=== PATIENT | male | born 1965 | race Caucasian/White ===

== ENCOUNTER 2023-03-09 21:05 | Emergency (ER) | payer BC, MEDICARE ==
[~2023-03-09] VITALS: Ht 180.3 cm; Wt 87.2 kg
[2023-03-09 23:07] LABS: BASOPHILS % (AUTO) 0.3 % (0-1); EOSINOPHILS % (AUTO) 0.2 % (0-6); HEMATOCRIT 33.6 % (42.0-52.0); HEMOGLOBIN 10.8 g/dl (14.0-17.9); LYMPHOCYTES % (AUTO) 11.4 % (21-51); MEAN CORPUSCULAR HEMOGLOBIN 20.5 PG (27.0-31.0); MEAN CORPUSCULAR HGB CONC 32.1 g/dL (33.0-36.5); MEAN CORPUSCULAR VOLUME 63.8 FL (78-98); MEAN PLATELET VOLUME 9.5 FL (7.4-10.4); MONOCYTES # (AUTO) 0.5 X10'3 (0-0.9); MONOCYTES % (AUTO) 5.2 % (2-12); NEUTROPHILS # (AUTO) 7.2 X10'3 (1.8-7.7); NEUTROPHILS % (AUTO) 82.9 % (42-75); PLATELET COUNT 247 X10'3 (140-440); RED BLOOD COUNT 5.26 X10'6 (4.70-6.10); RED CELL DISTRIBUTION WIDTH 16.1 % (11.5-14.5); WHITE BLOOD COUNT 8.7 X10'3 (4.5-11.0)
[2023-03-09 23:10] LABS: ALANINE AMINOTRANSFERASE 90 U/L (12-78); ALBUMIN 4.3 G/DL (3.4-5.0); ALBUMIN/GLOBULIN RATIO 1.7 (1.1-1.5); ALKALINE PHOSPHATASE 84 IU/L (46-116); ANION GAP 9 (8-16); ASPARTATE AMINO TRANSFERASE 25 U/L (10-37); BILIRUBIN,TOTAL 0.4 MG/DL (0.1-1.0); BLOOD UREA NITROGEN 17 MG/DL (7-18); CALCIUM 9.1 MG/DL (8.5-10.1); CHLORIDE 101 MMOL/L (99-107); CREATININE 1.06 MG/DL (0.60-1.10); GLUCOSE 206 MG/DL (70-104); POTASSIUM 3.8 MMOL/L (3.5-5.1); SODIUM 138 MMOL/L (135-145); TOTAL CARBON DIOXIDE 28.1 MMOL/L (24-32); TOTAL PROTEIN 6.9 G/DL (6.4-8.2); eGFR 72 ML/MIN
[2023-03-09 23:13] LABS: LIPASE 85 U/L (73-393)
[2023-03-10 00:33] LABS: ANISOCYTOSIS 1+; PLATELET ESTIMATE NORMAL
[2023-03-10 00:34] LABS: MICROCYTOSIS 2+; POLYCHROMASIA FEW
[2023-03-10 00:35] LABS: SCHISTOCYTES FEW
[2023-03-10 00:36] LABS: ELLIPTOCYTES FEW; TARGET CELLS 1+; TEAR DROP CELLS 1+
[2023-03-10] MEDS ORDERED: acetaminophen 1,000mg/100ml IV 100 ML IV STA (01:55)
[2023-03-10] MEDS ORDERED: iohexol 300mg/ml 100ml inj. ONE (02:03)
[2023-03-10 02:32] LABS: CLARITY,URINE CLEAR (Clear); COLOR,URINE YELLOW (Yellow); GLUCOSE, URINE 250 mg/dl (Neg); KETONES,URINE TRACE mg/dl (Neg); LEUKOCYTE ESTERASE ,URINE NEGATIVE (Neg); NITRITES, URINE NEGATIVE (Neg); OCCULT BLOOD,URINE NEGATIVE (Neg); PROTEIN,URINE NEGATIVE (Neg)
[2023-03-10 02:39] LABS: UA COLLECTION TYPE VOIDED
[2023-03-10 03:55] VITALS: BP 147/86
--- NOTE | 2023-03-10 05:21 | NUR ---
Returned pt to [facility]
== END 2023-03-10 04:00 | disposition home or self-care (01) ==
LOC: ER 21:06
DX: R10.84 Generalized abdominal pain (principal); R11.0 Nausea; K59.00 Constipation, unspecified; I10 Essential (primary) hypertension; Z86.2 Personal history of diseases of the blood and blood-forming organs and certain disorders involving the immune mechanism; Z88.0 Allergy status to penicillin; Z79.899 Other long term (current) drug therapy
CPT/HCPCS: 36415; 74177; 80053; 81003; 83690; 84484; 85008; 85025; 93005; 96365; 99285; J0131; J3490; Q9967